=== PATIENT | male | born 1960 | race Hispanic/Latino ===

== ENCOUNTER 2022-05-08 14:45 | Emergency (ER) | payer BC ==
[2022-05-08 15:01] VITALS: BP 132/92
--- NOTE | 2022-05-08 16:18 | Emergency Department Report ---
ED ENT HPI - General Chief complaint: Nosebleed Stated complaint: NOSE BLEED Time Seen by Provider: 05/08/22 15:16 Source: patient, EMS Mode of arrival: Stretcher Limitations: No Limitations - History of Present Illness Initial comments: This is a 62-year-old male presenting to the emergency department with complaint of nosebleed. Patient has bleeding from his left nare. Patient [place] the airport [place] this [place]. He was in the line and trying to fly to [place]. He had to come by EMS to the hospital as the bleeding would not stop. Patient reports that he is currently on Xarelto due to having previous blood clots in the legs and lungs. He denies any chest pain or shortness of breath. He has not had any leg swelling. He states his bleeding started at 1 PM. He has had slow bleeding since then. - Related Data Allergies Allergy/AdvReac Type Severity Reaction Status Date / Time No Known Allergies Allergy Unverified 05/08/22 15:01 ED Dental HPI - General Chief complaint: Nosebleed Stated complaint: NOSE BLEED Source: patient, EMS Mode of arrival: Stretcher Limitations: No Limitations - Related Data Allergies Allergy/AdvReac Type Severity Reaction Status Date / Time No Known Allergies Allergy Unverified 05/08/22 15:01 ED Review of Systems ROS: Stated complaint: NOSE BLEED Other details as noted in HPI Constitutional: denies: chills, fever Eyes: denies: eye pain, eye discharge, vision change ENT: epistaxis. denies: ear pain, throat pain Respiratory: denies: cough, shortness of breath, wheezing Cardiovascular: denies: chest pain, palpitations Endocrine: no symptoms reported Gastrointestinal: denies: abdominal pain, nausea, diarrhea Genitourinary: denies: urgency, dysuria Musculoskeletal: denies: back pain, joint swelling, arthralgia Skin: denies: rash, lesions Neurological: denies: headache, weakness, paresthesias Psychiatric: denies: anxiety, depression Hematological/Lymphatic: denies: easy bleeding, easy bruising ED Physical Exam - General Limitations: No Limitations General appearance: alert, in no apparent distress - Head Head exam: Present: atraumatic, normocephalic - Eye Eye exam: Present: normal appearance - ENT ENT exam: Present: other (There is bleeding from the left nare.) - Neck Neck exam: Present: normal inspection - Respiratory Respiratory exam: Present: normal lung sounds bilaterally. Absent: respiratory distress - Cardiovascular Cardiovascular Exam: Present: regular rate, normal rhythm. Absent: systolic murmur, diastolic murmur, rubs, gallop - GI/Abdominal GI/Abdominal exam: Present: soft, normal bowel sounds - Rectal Rectal exam: Present: deferred - Extremities Exam Extremities exam: Present: normal inspection - Back Exam Back exam: Present: normal inspection - Neurological Exam Neurological exam: Present: alert, oriented X3 - Psychiatric Psychiatric exam: Present: normal affect, normal mood - Skin Skin exam: Present: warm, dry, intact, normal color. Absent: rash ED Course Vital Signs 05/08/22 14:46 Temperature 98.0 F Pulse Rate 102 H Respiratory 18 Rate Blood Pressure 132/92 [Left] O2 Sat by Pulse 99 Oximetry - Reevaluation(s) Reevaluation #1: 05/08/22 16:18 Patient has had no additional bleeding. Patient's vital signs remained stable. Given this plan for discharge. - Procedure Description Procedures done: There is a Rhino Rocket placed in the left nare. The indication for the procedure was epistaxis. Patient tolerated the procedure well. 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 Plan for placement of Rhino Rocket and reassessment. Critical care attestation.: If time is entered above; I have spent that time in minutes in the direct care of this critically ill patient, excluding procedure time. ED Disposition Clinical Impression: Epistaxis Disposition: 01 HOME / SELF CARE / HOMELESS Is pt being admited?: No Does the pt Need Aspirin: No Condition: Stable Instructions: Nosebleed, Adult Additional Instructions: You should find an ENT doctor at your hometown in [place] that we will see you in the next 3 to 5 days. You should have this nasal tampon removed in that time. If you are unable to get it removed you should seek care at an urgent care or in the emergency department. If you develop fever, worsening pain, purulent drainage from your nose you may have an infection and it would be imperative for you to seek care. Time of Disposition: 16:15 Print Language: FAROESE
== END 2022-05-08 17:10 | disposition home or self-care (01) ==
LOC: ED 14:45
DX: R04.0 Epistaxis (principal); Z79.899 Other long term (current) drug therapy
CPT/HCPCS: 99283